=== PATIENT | male | born 1945 | race Caucasian/White ===

== ENCOUNTER 2018-02-16 02:18 | Inpatient (IN) | payer MEDICARE ==
[~2018-02-16] VITALS: Ht 182.9 cm; Wt 69.1 kg
[2018-02-16 02:40] LABS: BASOPHILS # (AUTO) 0.02 x10^3/uL (0-0.1); BASOPHILS % (AUTO) 0 % (0-1); EOSINOPHILS # (AUTO) 0.12 x10^3/uL (0-0.4); EOSINOPHILS % (AUTO) 2 % (1-7); LYMPHOCYTES # (AUTO) 0.82 x10^3/uL (1-3.4); LYMPHOCYTES % (AUTO) 13 % (22-44); MD NO; MEAN CORPUSCULAR HEMOGLOBIN 30.3 pg (27.5-34.5); MEAN CORPUSCULAR VOLUME 89.3 fL (81-97); MEAN PLATELET VOLUME 5.9 fL (7.4-10.4); MONOCYTES # (AUTO) 0.64 x10^3/uL (0.2-0.8); MONOCYTES % (AUTO) 10 % (2-9); NEUTROPHILS # (AUTO) 4.71 x10^3/uL (1.8-6.8); NEUTROPHILS % (AUTO) 75 % (42-75); PLATELET COUNT 375 x10^3/uL (130-400); RED BLOOD COUNT 3.48 x10^6/uL (4.38-5.82); RED CELL DISTRIBUTION WIDTH 13.7 % (9.4-14.8)
[2018-02-16 02:46] LABS: INTERNATIONAL NORMALIZED RATIO 1.04 (0.93-1.1); PROTHROMBIN TIME 10.7 Seconds (9.6-11.5)
[2018-02-16 02:47] LABS: ALBUMIN 2.9 g/dL (3.4-5.0); CALCIUM 8.2 mg/dL (8.5-10.1); CHLORIDE 83 mmol/L (98-107); CREATININE 0.57 mg/dL (0.7-1.3)
[2018-02-16 02:51] LABS: TROPONIN I < 0.015 ng/mL (0.000-0.045)
[2018-02-16 02:56] LABS: ANION GAP 10 mmol/L (5-15)
[2018-02-16] MEDS ORDERED: PROPOFOL 100 ML IV PRN (03:30)
[2018-02-16 04:57] VITALS: BP 154/63
[2018-02-16] MEDS ORDERED: ATROPINE OPHTH SOLN 1%, 5ML BC PRN (07:00)
[2018-02-16] MEDS ORDERED: SCOPOLAMINE PATCH, 1.5MG PATCH.TD72 TD PRN (07:00)
[2018-02-16] MEDS ORDERED: LORazepam 2 MG/ML, 1ML IVPush PRN ×2 (07:00→15:00)
[2018-02-16] MEDS ORDERED: LORazepam INTENSOL 2 MG/ML SL PRN (07:00)
[2018-02-16] MEDS: SODIUM CHLORIDE FLUSH 10ML SYR IVF SCH ×2 (09:42→20:34)
[2018-02-16] MEDS ORDERED: PROPOFOL 10 MG/ML, 50ML ONE (12:00)
[2018-02-16] MEDS ORDERED: SUCCINYLCHOLINE 20 MG/ML, 10ML ONE (12:00)
[2018-02-16] MEDS ORDERED: ETOMIDATE 40 MG/20 ML ONE (12:00)
[2018-02-16] MEDS ORDERED: MORPHINE SULFATE 4 MG/ML, 1ML IVPush PRN ×2 (14:30)
[2018-02-16] MEDS: LORazepam 2 MG/ML, 1ML IVPush SCH ×2 (14:58→20:34)
== END 2018-02-17 00:25 | disposition expired | DRG 85 ==
LOC: ED 03:33 → EDIP 03:39 → INTOOBSV 03:39 → 3NW 05:17 → OBSVTOIN 10:02
PROVIDERS: ADMIT Hospitalist; ATTEND Hospitalist
PROC: 5A1935Z Respiratory Ventilation, Less than 24 Consecutive Hours (ICD-10-PCS; principal; 2018-02-16)
PROC: 0BH17EZ Insertion of Endotracheal Airway into Trachea, Via Natural or Artificial Opening (ICD-10-PCS; 2018-02-16)
DX: S06.5X0A Traumatic subdural hemorrhage without loss of consciousness, initial encounter (principal); J96.01 Acute respiratory failure with hypoxia; E43 Unspecified severe protein-calorie malnutrition; E87.1 Hypo-osmolality and hyponatremia; G91.9 Hydrocephalus, unspecified; H57.04 Mydriasis; D63.8 Anemia in other chronic diseases classified elsewhere; E83.51 Hypocalcemia; G20 Parkinson's disease; I10 Essential (primary) hypertension; Z51.5 Encounter for palliative care; Z66 Do not resuscitate; W18.30XA Fall on same level, unspecified, initial encounter; Y93.89 Activity, other specified; Y92.89 Other specified places as the place of occurrence of the external cause; Z68.20 Body mass index [BMI] 20.0-20.9, adult
CPT/HCPCS: 31500; 36415; 70450; 71045; 80047; 80048; 82040; 84484; 85025; 85610; 85730; 93005; 94002; 99291; G0378; J2270; J2704; J0330; J2060